=== PATIENT | male | born 1985 | race Caucasian/White ===

== ENCOUNTER 2023-12-27 09:04 | Emergency (ER) | payer SELFPAY ==
--- NOTE | ~2023-12-27 | CT_ITS ---
EXAMINATION: CTA UE LT DATE: 12/27/2023 10:18 INDICATION: Left fingers pain, tingling, and discoloration. TECHNIQUE: Computed tomography angiography (CTA) of the left lower extremity was performed with 100 m L Omnipaque 350 intravenous contrast. Automated exposure control and iterative reconstruction techniq ue were employed. The dose-length product was 377.35 mGy-cm. Maximum intensity projection 3D-reconstr uctions of the arteries were created by the technologist on a separate workstation. COMPARISON: None FINDINGS: There is mild emphysema. There is no significant stenosis of the left subclavian, axillary, brachial, or radial arteries. The left ulnar artery and hand arteries are not well evaluated. IMPRESSION: 1. No significant stenosis of the left subclavian, axillary, brachial, or radial arteries. 2. Left ulnar artery and hand arteries not well evaluated. Reviewed, dictated and finalized at location A. IMPRESSION: 1. No significant stenosis of the left subclavian, axillary, brachial, or radia l arteries. 2. Left ulnar artery and hand arteries not well evaluated.
--- NOTE | ~2023-12-27 | US_ITS ---
EXAMINATION: US venous doppler E DATE: 12/27/2023 09:56 INDICATION: Left arm pain and discoloration in the fingers TECHNIQUE: Almodovar scale images with and without compression and Doppler images of the left upper extrem ity veins were obtained. COMPARISON: None. FINDINGS: The left internal jugular vein, subclavian vein, axillary vein, brachial veins, basilic vein, cephali c vein, radial vein, and ulnar vein are patent. IMPRESSION: 1. Patent left upper extremity veins. No evidence of deep venous thrombosis. Reviewed, dictated and finalized at location B.
[2023-12-27 09:08] VITALS: BP 200/120; PULSE 105; RESP 16; TEMP 36.5; O2SAT 98
--- NOTE | 2023-12-27 09:24 | ED.EXTPRO ---
HPI - Extremity Problem General Chief complaint: Extremity Problem,Nontraumatic <SERA Blount Last Filed: 12/27/23 18:49> Stated complaint: L HAND PAIN <SERA Blount Last Filed: 12/27/23 18:49> Time Seen by Provider: 12/27/23 09:07 <SERA Blount Last Filed: 12/27/23 18:49> Source: patient <SERA Blount Last Filed: 12/27/23 18:49> Mode of arrival: ambulatory <SERA Blount Last Filed: 12/27/23 18:49> Limitations: no limitations <SERA Blount Last Filed: 12/27/23 18:49> History of Present Illness HPI Narrative: Patient is a 38 y/o male who presents to the ED with c/o discoloration of his left fingers. Patient reports over the last 2 weeks, he has noticed deep red discoloration to his left fingers, first starting in his left distal pinky finger, also involving his 2nd and 3rd digits distally. He reports having intermittent pain and paresthesias in the fingers. Denies complete numbness. 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 Last night, he began noticing the skin of his distal fingers peeling off. He went to an urgent care this morning was referred here for further evaluation. Patient denies history of blood clots or other vascular issues that he is aware of. Denies pain or swelling throughout remainder of left arm. Denies injury, IVDA. Denies Hx of HTN/HLD. He is a daily 12-pack of beer drinker and smokes cigarettes. <SERA Blount Last Filed: 12/27/23 18:49> Related Data Allergies/Adverse reactions: Allergies Allergy/AdvReac Type Severity Reaction Status Date / Time No Known Allergies Allergy Verified 12/27/23 09:11 <SERA Blount Last Filed: 12/27/23 18:49> Review of Systems Review of Systems: CONSTITUTIONAL: Denies fever, chills, or sweats. SKIN: See HPI MUSCULOSKELETAL: See HPI NEUROLOGIC: See HPI <Tessy Diamond PA-C - Last Filed: 12/27/23 18:49> All systems reviewed & are unremarkable except as noted in HPI and below <Tessy Diamond PA-C - Last Filed: 12/27/23 18:49> PMFSH Past Medical History Medical History: Medical History (Updated 12/28/23 @ 00:00 by She Fall) History of diverticulitis <Tessy Diamond PA-C - Last Filed: 12/27/23 18:49> Social History Social History: Social History (Updated 12/27/23 @ 09:36 by Tessy Diamond PA-C) Smoking status: Current every day smoker Alcohol intake: current Alcohol use details: 12 pack of beer per day <Tessy Diamond PA-C - Last Filed: 12/27/23 18:49> Exam Narrative: GENERAL: Appears older than stated age, well-nourished, non-toxic, in no acute distress. HEAD: Normocephalic, atraumatic. ENT: Poor dentition. RESPIRATORY: Airway patent, respirations nonlabored. Clear to auscultation bilaterally, no rales, rhonchi, wheezing. CARDIOVASCULAR: Regular rate and rhythm, no appreciable murmur. Strong and easily palpable radial pulses. MUSCULOSKELETAL: Moves all extremities. No gross deformities. Full range of motion of left hand/fingers. No pain with ROM of hands/fingers. SKIN: Warm, dry, normal color. Light purple/red discoloration to distal tip of left 5th digit on the extensor surface, past DIP joint. Patches of purple discoloration to 2nd and 3rd digits on distal finger tip pads. Some peeling of skin to 4th and 5th digits. No ulceration/necrosis/gangrene. Minimal decreased sensation to left 5th digit distally, sharp touch sensation intact. Sensation intact throughout remainder of digits. Mildly delayed capillary refill in 2nd and 5th digits. Brisk capillary refill in 3rd/4th digits. Normal temperature throughout hand and fingers. NEURO: A&O X3. Speech clear. Steady gait. No ataxic movements. PSYCHIATRIC: Appropriate mood and affect. Normal interaction. <Tessy Diamond PA-C -
[2023-12-27 10:02] LABS: Basophils Absolute Auto 0.1 K/mm3 (0.0-0.1); Eosinophils Absolute Auto 0.3 K/mm3 (0-0.3); Hematocrit 35.8 % (42.0-52.0); Hemoglobin 11.4 g/dL (14.0-18.0); Immature Granulocyte Absolute 0.04 K/mm3 (0.00-0.031); Immature Granulocyte Percent A 0.4 % (0-0.5); Lymphocytes Percent Auto 26.7 % (18.3-44.2); Mean Corpuscular HGB Conc 31.8 g/dl (32-36); Mean Corpuscular Hemoglobin 32.9 pg (26-34); Mean Corpuscular Volume 103.5 fl (80-100); Mean Platelet Volume 8.6 fl (7.4-10.4); Monocytes Absolute Auto 0.8 K/mm3 (0.1-0.6); Monocytes Percent Auto 8.4 % (2.6-8.5); Neutrophils Absolute Auto 5.7 K/mm3 (1.3-6.7); Neutrophils Percent Auto 60.5 % (45.5-73.1); Platelet Count Result 461 k/mm3 (150-375); Red Blood Count 3.46 M/mm3 (4.6-6.20); Red Cell Distribution Width 18.6 % (11.5-14.5); White Blood Count 9.4 K/mm3 (4.5-10.0)
[2023-12-27 10:12] LABS: Prothrombin Time 13.1 Seconds (11.1-14.7)
[2023-12-27 10:13] LABS: Alanine Aminotransferase 20 U/L (6-50); Albumin Level 4.3 g/dL (3.5-5.1); Alkaline Phosphatase 85 U/L (38-126); Anion Gap 9 mmol/L (4-12); Aspartate Amino Transferase 68 U/L (17-59); Bilirubin,Total 0.4 mg/dL (0.2-1.3); Blood Urea Nitrogen 9 mg/dL (9-20); Calcium 9.2 mg/dL (8.4-10.2); Carbon Dioxide 19 mmol/L (22-30); Chloride 113 mmol/L (98-107); Estimated CRCL calculation 115 ml/min; Estimated Glomerular Filt Rate > 60; Glucose 94 mg/dL (65-110); Partial Thromboplastin Time 24.8 Seconds (22.3-36.8); Potassium 3.5 mmol/L (3.4-5.0); Sodium 141 mmol/L (137-145)
[2023-12-27 11:23] VITALS: BP 147/100; PULSE 102; RESP 18; O2SAT 99
== END 2023-12-27 11:50 | disposition home or self-care (01) ==
PROVIDERS: Emergency Provider Physician Assistant
DX: L60.8 Other nail disorders (principal); R03.0 Elevated blood-pressure reading, without diagnosis of hypertension; F17.210 Nicotine dependence, cigarettes, uncomplicated
CPT/HCPCS: 36415; 73206; 80053; 85025; 85610; 85730; 93971; 99284; Q9967